=== PATIENT | female | born 1935 ===

== ENCOUNTER → 2024-10-24 11:08 | Outpatient (REF) | payer MEDICARE, SELFPAY ==
[2024-10-24 12:37] LABS: Hematocrit 28.7 % (37.0-47.0); Hemoglobin 9.1 g/dL (12.0-16.0); Mean Corp Hgb Conc. 31.7 g/dL (33.0-37.0); Mean Corpuscular Volume 83.9 fL (81.0-99.0); Nucleated Red Blood Cells % 0 %; Platelet Count 383 10^3/uL (130-400); Red Cell Dist. Width 15.9 % (11.5-14.5)
[2024-10-24 13:12] LABS: Blood Urea Nitrogen 40 mg/dl (7-17); Calcium 8.2 mg/dl (8.4-10.2); Carbon Dioxide 21 mmol/L (22-30); Chloride 110 mmol/L (98-107); Glucose 87 mg/dl (70-99); Potassium 4.7 mmol/L (3.5-5.1); Sodium 137 mmol/L (135-145); eGFR 30.83
== END ==
LOC: OLABP 11:08
PROVIDERS: ATTENDING PHYSICIAN Family Medicine
DX: I10 Essential (primary) hypertension (principal); A41.9 Sepsis, unspecified organism; R79.89 Other specified abnormal findings of blood chemistry; E11.9 Type 2 diabetes mellitus without complications; E03.9 Hypothyroidism, unspecified; N18.32 Chronic kidney disease, stage 3b; D72.829 Elevated white blood cell count, unspecified; D64.9 Anemia, unspecified
CPT/HCPCS: 36415; 80048; 85025

== ENCOUNTER → 2024-10-27 10:44 | Outpatient (REF) | payer MEDICARE, SELFPAY ==
[2024-10-27 11:49] LABS: Blood Urea Nitrogen 32 mg/dl (7-17); Calcium 8.4 mg/dl (8.4-10.2); Carbon Dioxide 21 mmol/L (22-30); Chloride 111 mmol/L (98-107); Glucose 75 mg/dl (70-99); Potassium 4.9 mmol/L (3.5-5.1); Sodium 136 mmol/L (135-145); eGFR 33.31
== END ==
LOC: OLABP 10:44
PROVIDERS: ATTENDING PHYSICIAN Family Medicine
DX: N18.32 Chronic kidney disease, stage 3b (principal); I10 Essential (primary) hypertension; A41.9 Sepsis, unspecified organism; E11.9 Type 2 diabetes mellitus without complications; R79.89 Other specified abnormal findings of blood chemistry; E03.9 Hypothyroidism, unspecified; D64.9 Anemia, unspecified
CPT/HCPCS: 36415; 80048

== ENCOUNTER → 2024-11-01 11:23 | Outpatient (REF) | payer MEDICARE, SELFPAY ==
[2024-11-01 12:22] LABS: Hematocrit 24.4 % (37.0-47.0); Hemoglobin 7.8 g/dL (12.0-16.0); Mean Corp Hgb Conc. 32.0 g/dL (33.0-37.0); Mean Corpuscular Volume 83.0 fL (81.0-99.0); Nucleated Red Blood Cells % 0 %; Platelet Count 336 10^3/uL (130-400); Red Cell Dist. Width 16.5 % (11.5-14.5)
== END ==
LOC: OLABP 11:23
PROVIDERS: ATTENDING PHYSICIAN Family Medicine
DX: A41.9 Sepsis, unspecified organism (principal); R79.89 Other specified abnormal findings of blood chemistry; I10 Essential (primary) hypertension; E11.9 Type 2 diabetes mellitus without complications; E03.9 Hypothyroidism, unspecified; N18.32 Chronic kidney disease, stage 3b; D72.829 Elevated white blood cell count, unspecified; D64.9 Anemia, unspecified
CPT/HCPCS: 36415; 85025

== ENCOUNTER → 2024-11-03 11:15 | Outpatient (REF) | payer MEDICARE, SELFPAY ==
[2024-11-03 11:36] LABS: Hematocrit 25.2 % (37.0-47.0); Hemoglobin 8.1 g/dL (12.0-16.0); Mean Corp Hgb Conc. 32.1 g/dL (33.0-37.0); Mean Corpuscular Volume 82.4 fL (81.0-99.0); Nucleated Red Blood Cells % 0 %; Platelet Count 361 10^3/uL (130-400); Red Cell Dist. Width 16.5 % (11.5-14.5)
== END ==
LOC: OLABP 11:15
PROVIDERS: ATTENDING PHYSICIAN Family Medicine
DX: A41.9 Sepsis, unspecified organism (principal); R79.89 Other specified abnormal findings of blood chemistry; I10 Essential (primary) hypertension; E11.9 Type 2 diabetes mellitus without complications; E03.9 Hypothyroidism, unspecified; N18.32 Chronic kidney disease, stage 3b; D64.9 Anemia, unspecified
CPT/HCPCS: 36415; 85025

== ENCOUNTER → 2024-12-09 10:13 | Outpatient (REF) | payer MEDICARE, SELFPAY ==
[2024-12-09 11:51] LABS: Hematocrit 27.1 % (37.0-47.0); Hemoglobin 8.7 g/dL (12.0-16.0); Mean Corp Hgb Conc. 32.1 g/dL (33.0-37.0); Mean Corpuscular Volume 86.0 fL (81.0-99.0); Platelet Count 325 10^3/uL (130-400); Red Cell Dist. Width 17.0 % (11.5-14.5)
[2024-12-09 12:08] LABS: ALT (SGPT) 11 U/L (0-35); AST (SGOT) 21 U/L (14-36); Albumin 3.8 g/dl (3.5-5.0); Alkaline Phosphatase 74 U/L (38-126); Blood Urea Nitrogen 40 mg/dl (7-17); Calcium 9.3 mg/dl (8.4-10.2); Carbon Dioxide 22 mmol/L (22-30); Chloride 104 mmol/L (98-107); Glucose 88 mg/dl (70-99); Iron 53 ug/dl (37-170); Potassium 5.3 mmol/L (3.5-5.1); Sodium 134 mmol/L (135-145); Total Protein 7.4 g/dl (6.3-8.2); eGFR 26.77
[2024-12-09 12:17] LABS: Total Iron Binding Capacity 396 ug/dl (265-497)
[2024-12-09 12:38] LABS: Glycohemoglobin (HgbA1c) 5.5 % (4.0-5.9)
[2024-12-09 12:39] LABS: TSH 3.44 uIU/ml (0.47-4.68)
[2024-12-09 13:15] LABS: Folate 8.3 ng/ml (2.76-20); Vitamin B12 312 pg/ml (239-931)
== END ==
LOC: OLABLV 10:13
PROVIDERS: ATTENDING PHYSICIAN Nurse Practitioner Gerontology
DX: N18.32 Chronic kidney disease, stage 3b (principal); E03.9 Hypothyroidism, unspecified; E11.22 Type 2 diabetes mellitus with diabetic chronic kidney disease; D64.9 Anemia, unspecified
CPT/HCPCS: 36415; 80053; 82607; 82746; 83036; 83540; 83550; 84439; 84443; 85027

== ENCOUNTER → 2024-12-28 10:57 | Outpatient (REF) | payer MEDICARE, SELFPAY ==
[2024-12-28 13:47] LABS: Blood Urea Nitrogen 39 mg/dl (7-17); Calcium 8.9 mg/dl (8.4-10.2); Carbon Dioxide 21 mmol/L (22-30); Chloride 108 mmol/L (98-107); Glucose 82 mg/dl (70-99); Potassium 5.9 mmol/L (3.5-5.1); Sodium 135 mmol/L (135-145); eGFR 25.08
== END ==
LOC: OLABLV 10:57
PROVIDERS: ATTENDING PHYSICIAN Nurse Practitioner Gerontology
DX: N18.4 Chronic kidney disease, stage 4 (severe) (principal)
CPT/HCPCS: 36415; 80048

== ENCOUNTER → 2025-01-18 12:28 | Outpatient (REF) | payer MEDICARE, SELFPAY ==
[2025-01-18 16:28] LABS: Blood Urea Nitrogen 40 mg/dl (7-17); Calcium 8.7 mg/dl (8.4-10.2); Carbon Dioxide 20 mmol/L (22-30); Chloride 109 mmol/L (98-107); Glucose 87 mg/dl (70-99); Potassium 5.3 mmol/L (3.5-5.1); Sodium 136 mmol/L (135-145); eGFR 26.77
== END ==
LOC: OLABLV 12:28
PROVIDERS: ATTENDING PHYSICIAN Nurse Practitioner Gerontology
DX: M18.4 Other bilateral secondary osteoarthritis of first carpometacarpal joints (principal)
CPT/HCPCS: 36415; 80048

== ENCOUNTER → 2025-02-08 09:39 | Outpatient (REF) | payer MEDICARE, SELFPAY ==
[2025-02-08 10:57] LABS: Blood Urea Nitrogen 43 mg/dl (7-17); Calcium 8.8 mg/dl (8.4-10.2); Carbon Dioxide 20 mmol/L (22-30); Chloride 107 mmol/L (98-107); Glucose 83 mg/dl (70-99); Potassium 5.8 mmol/L (3.5-5.1); Sodium 134 mmol/L (135-145); eGFR 25.08
== END ==
LOC: OLABLV 09:39
PROVIDERS: ATTENDING PHYSICIAN Nurse Practitioner Gerontology
DX: N18.4 Chronic kidney disease, stage 4 (severe) (principal)
CPT/HCPCS: 36415; 80048